=== PATIENT | male | born 1980 | race Caucasian/White ===

== ENCOUNTER 2022-02-28 16:04 | Emergency (ER) | payer OTHER ==
[2022-02-28 17:38] VITALS: PULSE 64; RESP 18; TEMP 98
--- NOTE | 2022-02-28 17:58 | XR ---
Left clavicle. HISTORY: Pain following trauma. COMPARISON: None. TECHNIQUE: 2 views left clavicle were obtained. There is a fracture with mild displacement and angulation of the mid left clavicle. The AC joint is i ntact. IMPRESSION: Fractures of the mid left clavicle.
--- NOTE | 2022-02-28 18:00 | XR ---
Left shoulder. HISTORY: Pain following trauma. COMPARISON: None. TECHNIQUE: 3 views left shoulder were obtained. FINDINGS: There is a mildly displaced fracture with angulation of the mid left clavicle. The AC joint is intact . The glenohumeral joint is intact and there is no fracture of the humerus or scapula. There is no gl enohumeral or AC joint dislocation.There is no radiopaque foreign body. Impression: Fracture the mid left clavicle with no other significant abnormality seen at the shoulder joint.
[2022-02-28] MEDS ORDERED: HYDROmorphone 1 MG/ML 1 ML SYRINGE IM STA (18:40)
[2022-02-28] MEDS ORDERED: traMADol 50 MG STARTER PACK 3 TAB BTL PO STA (18:54)
--- NOTE | 2022-02-28 18:56 | ED ---
Upper Extremity HPI - General Chief Complaint: Extremity Injury, Upper Stated Complaint: Fall-L shoulder injury Time Seen by Provider: 02/28/22 18:36 Source: patient Mode of arrival: ambulatory Limitations: no limitations - History of Present Illness Initial Comments: Patient is a 41-year-old male presenting with chief complaint of left shoulder pain. Patient fell out of a tree and fell onto the left shoulder, patient states he heard multiple cracks over the clavicle. Patient is having pain with range of motion. No numbness, tingling, weakness. No redness. There is some swelling over the scapula. There is pain to light palpation. No no headache, neck pain, vision or hearing changes, nausea, vomiting, dizziness - Related Data Allergies Allergy/AdvReac Type Severity Reaction Status Date / Time aspirin Allergy Hallucinati Verified 02/28/22 17:38 ons Review of Systems ROS Statement: Those systems with pertinent positive or pertinent negative responses have been documented in the HPI. ROS Other: All systems not noted in ROS Statement are negative. Past Medical History Past Medical History: No Reported History History of Any Multi-Drug Resistant Organisms: None Reported Additional Past Surgical History / Comment(s): right leg surgery Past Psychological History: No Psychological Hx Reported Smoking Status: Current every day smoker Past Alcohol Use History: Occasional Past Drug Use History: Marijuana General Exam General appearance: alert, in no apparent distress Head exam: Present: atraumatic, normocephalic, normal inspection Eye exam: Present: normal appearance, PERRL, EOMI. Absent: scleral icterus, periorbital swelling, periorbital tenderness Pupils: Present: normal accommodation Neck exam: Present: normal inspection, full ROM. Absent: tenderness Respiratory exam: Present: normal lung sounds bilaterally. Absent: respiratory distress, wheezes, rales, rhonchi, stridor Cardiovascular Exam: Present: regular rate, normal rhythm, normal heart sounds. Absent: systolic murmur, diastolic murmur, rubs, gallop, clicks Left General: Present: other (Deformity seen over left clavicle) Shoulder Exam: Present: tenderness, swelling. Absent: full ROM Neuro motor exam: Present: wrist extension intact, fingers 2-5 abduction intact Vascular: Present: radial pulse (2+) Neurological exam: Present: alert, oriented X3, CN II-XII intact Expanded Patient oriented to: Present: person, place, time Speech: Present: fluid speech Cranial nerves: EOM's Intact: Normal, Facial Sensation: Normal Sensory exam: Upper Extremity Light Touch: Normal, Lower Extremity Light Touch: Normal Motor strength exam: RUE: 5 (Difficult to assess left due to injury), RLE: 5, LLE: 5 Eye Response: (4) open spontaneously Motor Response: (6) obeys commands Verbal Response: (5) oriented Walter Total: 15 Psychiatric exam: Present: normal affect, normal mood Skin exam: Present: warm, dry, intact, normal color. Absent: rash Course Vital Signs 02/28/22 17:31 Temperature 98 F Pulse Rate 64 Respiratory 18 Rate O2 Sat by Pulse 98 Oximetry Medical Decision Making - Medical Decision Making Patient is a 41-year-old male presenting for evaluation of left shoulder pain. Patient fell out of a tree and landed on the left shoulder. He has no other complaints at this time. No chest pain or shortness of breath. No headache, vision changes, neck pain, nausea, vomiting, dizziness. On examination there is a clear deformity over the left clavicle, patient has limited range of motion, there is tenderness and swelling. No focal neurological deficits, no neck tenderness, extraocular motions are intact, PERRLA, no tenderness on palpation of the chest wall. X-ray shows clavicle fracture, minimally displaced. Patient is given an arm sling and instructed to follow-up with orthopedics. Follow-up with PCP. Report back to ER with any new or worsening symptoms. Discussed return parameters and answered all questions. Patient conveyed verbal understanding and agreed to the plan. I discussed this case in detail with my attending Dr. Skinner. Disposition Clinical Impression: Clavicle fracture Disposition: HOME SELF-CARE Condition: Good Instructions (If sedation given, give patient instructions): Clavicle Fracture (ED) Additional Instructions: Follow-up with PCP and orthopedics. Call orthopedic office on Wednesday. Report back to ER with any new or worsening symptoms. Take Motrin and Tylenol as needed for pain control. Utilize arm sling. Is patient prescribed a controlled substance at d/c from ED?: No Referrals: Nonstaff,Physician [Primary Care Provider] - 1-2 days Lino Cote DO [Doctor of Osteopathic Medicine] - 1-2 days Time of Disposition: 18:56
== END 2022-02-28 19:24 | disposition home or self-care (01) ==
LOC: EC 16:04
DX: S42.002A Fracture of unspecified part of left clavicle, initial encounter for closed fracture (principal); F17.200 Nicotine dependence, unspecified, uncomplicated; Z88.6 Allergy status to analgesic agent; W14.XXXA Fall from tree, initial encounter
CPT/HCPCS: 73030; 73000; 99283; 96372; J1170